=== PATIENT | male | born 1955 | race Caucasian/White ===

== ENCOUNTER 2020-11-03 01:13 | Outpatient (CLI) | payer MEDICARE, SELFPAY ==
--- NOTE | 2020-11-03 | DI.CT_ITS ---
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 TECHNIQUE: Imaging Protocol: Axial computed tomography images with coronal and sagittal reformatted images were created and reviewed CONTRAST MATERIAL: Intravenous: Omnipaque 100cc Oral: Yes COMPARISON: No exams were available for comparison FINDINGS: VISUALIZED LUNG BASES: No significant nodules nor pleural effusions evident. ABDOMEN: There is no ascites. LIVER: There are no focal hepatic lesions evident . GALLBLADDER/BILIARY: No obvious gallbladder pathology. CBD is not dilated. PANCREAS: No evidence of pancreatic mass nor dilatation of the pancreatic duct. SPLEEN: Spleen is not enlarged. No obvious intrasplenic lesions. Splenic and portal veins are paten t. ADRENALS: There are no significant adrenal masses. KIDNEYS:There is a benign cyst in the superior pole of the left kidney which measures 5.6 by 5.6 cm.. There is a small 1 cm cyst in the superior pole of the opposite-right kidney. No other focal renal findings. No calculi nor hydronephrosis. Ureters are not dilated. No obvious masses nor calculi i n the urinary bladder. No solid renal masses. No calculi nor hydronephrosis.. ABDOMINAL AORTA: Abdominal aorta is not enlarged. LYMPH NODES:There is no retroperitineal nor paraaortic adenopathy. ABDOMINAL WALL: No evidence of anterior abdominal wall hernia but there is relatively symmetrical thi ckening of the skin and subcutaneous tissues over both sides of the abdomen at and below the umbilica l level. Correlation any focal findings of cellulitis recommended. There is no drainable subcutaneo us fluid collection GI: There is no evidence of bowel obstruction, free air, nor abscess. PELVIS: GI: No evidence of appendicitis.There is sigmoid diverticulosis without evidence of acute diverticuli tis. LYMPH NODES: There is no intrapelvic nor inguinal adenopathy. REPRODUCTIVE: Prostate gland is not enlarged. There is a focal central defect in the prostate gland which is either from prior biopsy or TURP URINARY BLADDER: No calculi nor obvious masses evident OSSEOUS: There is a 1 cm sclerotic density in the right femoral head which is probably benign bone is land. There is a 3 millimeters sclerotic density in the inferior aspect of the left scapula which ma y be significant. No obvious blastic lesions evident within the visualized spinal column and sacrum. IMPRESSION: 1. Single benign cyst in each kidney. The largest is in the left kidney and measures 5.6 cm. No jamari id renal masses. No calculi nor hydronephrosis. 2. Prostate gland is not enlarged but is noted to contain a central defect either from prior rib biop sy or TURP. 3. Relatively symmetrical thickening of the skin and subcutaneous tissues over both sides the abdomen below the umbilical level. Correlation the clinical findings of cellulitis recommended. There is n o drainable fluid collection in the subcutaneous tissues. 4. No significant lymphadenopathy in the abdomen and pelvis. 5. Bone findings as described above. Recommend whole body nuclear bone scan given the history here. Sigmoid diverticulosis. No evidence of obvious acute diverticulitis. RADIATION DOSE DELIVERED: 2,661.76mGy.cm Total DLP DATA REPOSITORY: All CT scans at this facility are submitted to the National Radiology Data Registry (NRDR) Dose Index Registry (DIR) with the [employer] ([employer]). RADIATION OPTIMIZATION: All CT scans at this facility use at least one of these dose optimization te chniques: automated exposure control; mA and/or kV adjustment per patient size (includes targeted exa ms where dose is matched to clinical indication); or iterative reconstruction.
[2020-11-03 08:59] LABS: BUN 13 mg/dL (7-18); CREATININE 1.1 mg/dL (0.70-1.30)
[2020-11-03] MEDS: Normal Saline - Diluent 50 ML VIAL IV (10:35)
[2020-11-03] MEDS: Omnipaque 350 MG/ML 100 ML BTL IJ (10:36)
[2020-11-03] MEDS: Breeza Beverage 473 ML BTL PO (10:44)
[2020-11-03] MEDS: Omnipaque 350 MG/ML 50 ML BTL IJ (10:44)
== END 2020-11-03 01:33 ==
PROVIDERS: PCP Physician Assistant Medical; Visit Provider Urology
DX: D49.59 Neoplasm of unspecified behavior of other genitourinary organ (principal)
CPT/HCPCS: 84520; 74177; 82565; J3490; Q9967

== ENCOUNTER 2020-12-08 00:50 | Outpatient (CLI) | payer MEDICARE, SELFPAY ==
--- NOTE | 2020-12-08 | DI.RAD_ITS ---
Exam(s) XR HAND RT LIMITED EXAM: XR HAND RT LIMITED CLINICAL HISTORY: XRAY HAND PRIOR TO MRI, PT REPORTS HISTORY OF METAL IN HAND. TECHNIQUE: 2D digital imaging was performed. COMPARISON: No exams were available for comparison FINDINGS: Limited two view study of the right hand reveal no evidence of acute fracture. However, there is a f lexion deformity at the DIP joint of the 4th-index finger. The DIP joint itself appears unremarkable on the lateral view. This flexion may imply dysfunction or tear of the extensor or tendon at this l evel. There is no radiopaque foreign body in the hand evident. IMPRESSION: DATA REPOSITORY: RADIATION DOSE DELIVERED:
== END 2020-12-08 01:10 ==
PROVIDERS: PCP Physician Assistant Medical; Visit Provider Radiology Radiation Oncology
DX: Z18.11 Retained magnetic metal fragments (principal); C61 Malignant neoplasm of prostate
CPT/HCPCS: 73120